=== PATIENT | female | born 2000 | race Caucasian/White ===

== ENCOUNTER 2023-07-08 14:06 | Outpatient (CLI) | payer OTHER, SELFPAY | END 2023-07-08 14:07 | disposition home or self-care (01) | PROVIDERS: PCP Family Medicine; Visit Provider Family Medicine | DX: R00.0 Tachycardia, unspecified (principal); R11.0 Nausea; R63.1 Polydipsia; R53.83 Other fatigue; R35.89 Other polyuria | CPT/HCPCS: 80053; 82306; 84443 ==

== ENCOUNTER 2023-08-30 07:30 | Outpatient (CLI) | payer OTHER, SELFPAY | END 2023-08-30 07:31 | disposition home or self-care (01) | PROVIDERS: PCP Family Medicine; Visit Provider Family Medicine | DX: H04.123 Dry eye syndrome of bilateral lacrimal glands (principal); R63.1 Polydipsia | CPT/HCPCS: 82533; 84443; 86039; 86235 ==

== ENCOUNTER 2023-09-05 07:46 | Outpatient (CLI) | payer OTHER, SELFPAY ==
[2023-09-08 13:45] LABS: Cortisol Free Urine CRT ratio 45.39 ug/g CRT; Cortisol/Cortisone Ratio 0.53 ratio (0.15-0.50); Hours Collected 24 hr; Total Volume 3200 mL
== END 2023-09-05 07:47 | disposition home or self-care (01) ==
PROVIDERS: PCP Family Medicine; Visit Provider Family Medicine
DX: R79.89 Other specified abnormal findings of blood chemistry
CPT/HCPCS: 82570; 83935; 84300; 84540

== ENCOUNTER 2023-09-22 07:05 | Outpatient (CLI) | payer OTHER, SELFPAY ==
--- NOTE | 2023-09-22 07:15 | CRLHL7_ITS ---
For Patients: As a result of the Century Cures Act, medical imaging exams and procedure reports are released immediately into your electronic medical record. You may view this report before your referring provider. If you have questions, please contact your health care provider. INDICATION: Hypercortisolism TECHNIQUE: Multiplanar imaging of the abdomen and pelvis was performed without and with 20 cc of Dotarem contrast material IV. COMPARISON: None. FINDINGS: The adrenal glands are normal in size, shape and signal. No adrenal diffusion restriction or abnormal contrast enhancement is apparent. No retroperitoneal mass is noted. The liver normal in size, shape and signal. No bile duct dilation is evident. The spleen, pancreas and kidneys appear to be within normal limits. No lymphadenopathy or free fluid is evident. No bowel abnormality is demonstrated. IMPRESSION: Negative MRI of the adrenal glands/abdomen Dictated by Beck Mercedes MD @ 09/23/2023 6:54:43 AM (Electronically Signed)
== END 2023-09-22 07:06 | disposition home or self-care (01) ==
LOC: MRI 07:07
PROVIDERS: PCP Family Medicine; Visit Provider Family Medicine
DX: E24.2 Drug-induced Cushing's syndrome (principal); R79.89 Other specified abnormal findings of blood chemistry; R63.1 Polydipsia; R35.89 Other polyuria
CPT/HCPCS: 74183; A9575

== ENCOUNTER 2024-01-11 13:47 | Outpatient (CLI) | payer OTHER, SELFPAY | END 2024-01-11 13:48 | disposition home or self-care (01) | LOC: FRMREF 02-02 13:48 | PROVIDERS: PCP Family Medicine; Visit Provider Family Medicine | DX: R79.89 Other specified abnormal findings of blood chemistry (principal) | CPT/HCPCS: 82533 ==

== ENCOUNTER 2025-01-24 10:31 | Outpatient (CLI) | payer OTHER, SELFPAY ==
[2025-01-27 03:14] LABS: HPV Source Vaginal
== END 2025-01-24 10:32 | disposition home or self-care (01) ==
LOC: FRMREF 10:31
PROVIDERS: PCP Family Medicine; Visit Provider Family Medicine
DX: Z12.4 Encounter for screening for malignant neoplasm of cervix (principal)
CPT/HCPCS: 87624; 87625